=== PATIENT | female | born 1995 | race Caucasian/White ===

== ENCOUNTER 2021-05-08 20:25 | Outpatient (REF) | payer OTHER, SELFPAY ==
[2021-05-08 20:49] LABS: COVID-19 Test Positive (Negative)
== END 2021-05-08 20:26 | disposition home or self-care (01) ==
LOC: HO.LAB 20:25
PROVIDERS: PCP Internal Medicine; Visit Provider Internal Medicine
DX: Z20.822 Contact with and (suspected) exposure to COVID-19 (principal)
CPT/HCPCS: 87635

== ENCOUNTER 2021-07-08 12:01 | Emergency (ER) | payer OTHER, SELFPAY ==
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
[2021-07-08 12:42] VITALS: BP 140/81; PULSE 68; RESP 18; TEMP 37.1; O2SAT 100; BMI 27.4
[2021-07-08] MEDS: Acetaminophen 325 MG TABLET 975 MG PO (12:47)
== END 2021-07-08 13:03 | disposition home or self-care (01) ==
PROVIDERS: Emergency Provider Emergency Medicine; PCP Family Medicine
DX: S09.90XA Unspecified injury of head, initial encounter (principal); Y04.2XXA Assault by strike against or bumped into by another person, initial encounter; Y93.F9 Activity, other caregiving; Y92.230 Patient room in hospital as the place of occurrence of the external cause; Y99.0 Civilian activity done for income or pay
CPT/HCPCS: 99283